=== PATIENT | female | born 1995 | race Caucasian/White ===

== ENCOUNTER 2018-08-31 08:17 | Inpatient (IN) ==
[2018-08-31] MEDS ORDERED: Naloxone Inj 0.4 MG/ML Vial IV.PUSH PRN ×2 (09:08→16:41)
[2018-08-31] MEDS ORDERED: Oxytocin 30 Units/500ml Premix 30 UNITS/500 ML BAG IV.SIG ONE (09:08)
[2018-08-31] MEDS ORDERED: fentaNYL Citrate Inj 100 MCG/2 ML Ampul IV.PUSH PRN ×2 (09:08)
[2018-08-31] MEDS ORDERED: Penicillin G Potassium Inj 5,000,000 UNIT in Sodium Chloride 0.9% Inj 100 ML IV.SIG ONE (09:08)
[2018-08-31] MEDS ORDERED: Sodium Chlor 0.9% Inj 500 ML IV.SIG PRN (09:08)
[2018-08-31] MEDS ORDERED: Sod Chloride 0.9% Inj 1,000 ML IV.CONT PRN (09:08)
--- NOTE | 2018-08-31 09:08 | P.HPOB ---
OB - Admission History and Physical Patient Name: Abbi Burden Date of : 89 Patient Status: Inpatient Attending Provider: Yumiko Vasques Date: 08/31/18 09:07 Initialization Date: 08/31/18 08:57 History of Present Illness [place] [facility] [place] Physician: No Primary Care Physician Chief Complaint: ruptured membranes History of Present Illness: This 23 y/o female , EGA 39 wks presents to the OB ED with c/o SROM. She states her water broke at 8 AM. She is not really feeling ctxs. +FM, No VB. complicated by VB at 27 wks for which no cause was found. She was also scheduled for ind next week due to elevated liver enzymes. care has been with Dr. Mullins. Weeks Gestation:: 39 Para: 0 : 2 - Inpatient Certification I certify that the inpatient services were ordered in accordance with Medicare regulations governing the order. This includes certification that hospital inpatient services are reasonable and necessary and in the case of services not specified as inpatient-only under 42 CFR 419.22(n), that they are appropriately provided as inpatient services in accordance to with the 2-midnight benchmark under 43 CFR 412.3(e) Estimated Total Length of Stay (Days): 3 Plans for Post Hospital Care: Home Review of Systems All other systems reviewed negative except as stated in [facility] - History History Provided By: Patient - Medical History Medical History: Medical History (Last Updated 08/31/18 @ 09:00 by Swetha Cooper DO) Elevated liver enzymes (Acute) - Surgical History Surgical History: Surgical History (Last Reviewed 08/31/18 @ 09:00 by Swetha Cooper DO) History of dilation and curettage History of orthopedic surgery - Social History I have reviewed the patient's Social History: Yes - Tobacco History Smoking Status: Never smoker - Alcohol History How Often Do You Have a Drink Containing Alcohol: Never - Substance Use History Substance History: No History of Abuse - Travel History History of Recent Travel: No Medications and Allergies Allergies Allergy/AdvReac Type Severity Reaction Status Date / Time No Known Allergies Allergy Verified 06/22/18 15:40 Home Medications Medication Instructions Recorded Confirmed Type folic acid 0.8 mg PO DAILY 06/22/18 06/22/18 History vit,[id number] 1 tab PO DAILY 06/22/18 06/22/18 History [PNV 29-1] Exam Vital signs: Vital Signs 08/31/18 08:36 08/31/18 08:45 Temperature 99.4 F Pulse Rate 76 Respiratory Rate 18 Blood Pressure 119/75 Narrative: GENERAL: Well-nourished, well-developed patient. SKIN: Warm and dry. HEAD: Normocephalic and atraumatic. EYES: No scleral icterus. No injection or drainage. ENT: No nasal drainage noted. Mucous membranes pink. Airway patent. NECK: Supple, trachea midline. No JVD. CARDIOVASCULAR: Regular rate and rhythm without murmurs, gallops, or rubs. RESPIRATORY: Breath sounds equal bilaterally. No accessory muscle use. ABDOMEN/GI: Abdomen soft, non-tender, bowel sounds present, no rebound, no guarding Gravid to [39] weeks size GENITOURINARY: External Genitalia: intact and normal in appearance BUS glands: [normal] Cervix: [Mid] Dilatation: [6] Effacement: [80] Station: [-2] Presentation: [vtx] Membranes: [ruptured] Uterine Contractions: [irreg] FHT's: Category: [1] Baseline: [140] Reactive: [Yes] Variability: [Mod] Decels: [None] +Accels EXTREMITIES: No cyanosis or edema. BACK: Nontender without obvious deformity. No CVA tenderness. NEUROLOGICAL: Awake and alert. Motor and sensory grossly within normal limits. Five out of 5 muscle strength in all muscle groups. Normal speech. Results - Labs Group B Strep: Positive Assessment and Plan - Diagnosis (1) Leakage of amniotic fluid Code(s): O42.90 - Premature rupture of membranes, unspecified as to length of time between rupture and onset of labor, unspecified weeks of gestation Status : Acute (2) 39 weeks gestation of Code(s): Z3A.39 - 39 weeks gestation of Status: Acute (3) Elevated liver enzymes Code(s): R74.8 - Abnormal levels of other serum enzymes Status: Acute - Plan Admit to L&D GBS prophylaxis Pit if needed Discharge Plan - Physicians Team ED Provider: Swetha Cooper Primary Care Provider: Primary Care Physici,No - Rxs /Orders / Referrals /Forms Prescriptions: No Action folic acid 0.8 mg Capsule 0.8 mg PO DAILY vit,[id number] [PNV 29-1] 29 mg iron- 1 mg Tablet 1 tab PO DAILY - Discharge Instructions Print Language: Kyrgyz
[2018-08-31] MEDS ORDERED: Citric Acid/Sodium Citrate Liq 30 ML UDC PO SCH (09:15)
[2018-08-31 09:23] LABS: Baso % (Auto) 0.3 % (0.0-2.0); Eos # (Auto) 0.1 th/mm3 (0.0-0.4); Eos % (Auto) 0.7 % (0.0-4.0); Hematocrit 38.1 % (35.0-46.0); Hemoglobin 13.1 gm/dL (11.6-15.3); Lymph # (Auto) 2.1 th/mm3 (1.0-4.8); Lymph % (Auto) 21.2 % (9.0-44.0); Mean Corpuscular HGB Conc 34.4 % (32.0-36.0); Mean Corpuscular Hemoglobin 30.7 pg (27.0-34.0); Mean Corpuscular Volume 89.5 fL (80.0-100.0); Mean Platelet Volume 8.6 fL (7.0-11.0); Mono # (Auto) 0.8 th/mm3 (0.0-0.9); Mono % (Auto) 7.5 % (0.0-8.0); Neut % (Auto) 70.3 % (16.0-70.0); Platelet Count 165 th/mm3 (150-450); Red Blood Count 4.26 mil/mm3 (4.00-5.30); Red Cell Distribution Width 12.7 % (11.6-17.2)
[2018-08-31] MEDS ORDERED: fentaNYL 2MCG-Bupiv 0.125% Epi 150 ML EPIDURAL ONE (09:29)
[2018-08-31 09:40] LABS: Bacteria,Urine Rare /hpf; Bilirubin,Urine Negative (Negative); Clarity,Urine Hazy (Clear); Color,Urine Yellow (Yellw/Straw); Glucose,Urine (UA) Negative (Negative); Leukocyte Esterase,Urine Trace (Negative); Mucus,Urine Few /lpf (Occasional); Nitrite,Urine Negative (Negative); Specific Gravity,Urine 1.016 (1.002-1.035); Squamous Epithelial Cell,Urine 3 /hpf (0-5)
[2018-08-31 09:43] LABS: Albumin 2.4 g/dL (3.4-5.0); Anion Gap 8 meq/L (5-15); Aspartate Aminotransferase 25 U/L (15-37); Blood Urea Nitrogen 7 mg/dL (7-18); Calcium 8.2 mg/dL (8.5-10.1); Carbon Dioxide 22.7 meq/L (21.0-32.0); Chloride 108 meq/L (98-107); Glomerular Filtration Rate Greater Than 89 mL/min (>89); Glucose,Random 71 mg/dL (74-106); Potassium 3.7 meq/L (3.5-5.1); Sodium 139 meq/L (136-145)
[2018-08-31 09:44] LABS: Alanine Aminotransferase 35 U/L (10-53)
[2018-08-31 09:46] LABS: Alkaline Phosphatase 190 U/L (45-117); Total Protein 6.3 g/dL (6.4-8.2)
[2018-08-31] MEDS ORDERED: Lidocaaine 1.5%/Epinephrine 1:200,000 PF Inj 5 ML Amp ONE (10:05)
[2018-08-31] MEDS ORDERED: Lidocaine PF 1% Inj 5 ML Vial ONE (10:05)
[2018-08-31] MEDS ORDERED: fentaNYL Citrate Inj 100 MCG/2 ML Ampul EPIDURAL ONE (11:04)
[2018-08-31] MEDS ORDERED: fentaNYL 2MCG-Bupiv 0.125% Epi 150 ML EPIDURAL PRN (11:04)
[2018-08-31] MEDS ORDERED: Oxytocin 30 Units/500ml Premix 30 UNITS/500 ML BAG IV.SIG PRN (12:00)
[2018-08-31] MEDS: Penicillin G Potassium Inj 2,500,000 UNIT in Sodium Chlor 0.9% Inj 100 ML IV.SIG SCH ×2 (13:17→18:29)
--- NOTE | 2018-08-31 15:49 | P.OBLABOR ---
Subjective Interval history: comfortable with epidural Objective Vital Signs: Vital Signs - 8 hr 08/31/18 08:36 08/31/18 08:45 08/31/18 09:26 Temperature 99.4 F Pulse Rate 76 58 L Respiratory Rate 18 18 Blood Pressure 119/75 122/64 08/31/18 09:41 08/31/18 09:50 08/31/18 09:55 Temperature Pulse Rate 74 68 68 Respiratory Rate 18 Blood Pressure 111/70 105/48 L 119/71 08/31/18 10:27 08/31/18 10:31 08/31/18 10:35 Temperature Pulse Rate 69 73 Respiratory Rate 16 Blood Pressure 122/64 122/64 120/79 08/31/18 10:40 08/31/18 10:50 08/31/18 10:55 Temperature 97.9 F Pulse Rate 75 73 77 Respiratory Rate 16 Blood Pressure 109/55 L 113/70 116/65 08/31/18 11:05 08/31/18 11:10 08/31/18 11:25 Temperature Pulse Rate 72 74 84 Respiratory Rate 18 Blood Pressure 121/70 125/72 114/69 08/31/18 11:45 08/31/18 11:55 08/31/18 12:20 Temperature Pulse Rate 74 76 71 Respiratory Rate 18 Blood Pressure 114/74 109/71 08/31/18 12:25 08/31/18 12:35 08/31/18 12:39 Temperature 98.0 F Pulse Rate 77 74 Respiratory Rate 16 Blood Pressure 118/68 08/31/18 12:40 08/31/18 12:45 08/31/18 12:55 Temperature Pulse Rate 72 72 68 Respiratory Rate Blood Pressure 116/64 08/31/18 13:30 08/31/18 13:55 08/31/18 14:00 Temperature Pulse Rate 72 90 86 Respiratory Rate 16 Blood Pressure 114/70 119/73 119/78 08/31/18 14:10 08/31/18 14:15 08/31/18 14:25 Temperature 99.0 F Pulse Rate 94 H 91 H 99 H Respiratory Rate 18 Blood Pressure 114/67 08/31/18 15:10 08/31/18 15:12 08/31/18 15:15 Temperature 99.8 F H Pulse Rate 93 H 96 H Respiratory Rate Blood Pressure 121/74 108/71 08/31/18 15:25 Temperature Pulse Rate 100 H Respiratory Rate Blood Pressure Objective: Pelvic Exam: complete/100%/0 EFW 7 pounds pelvis clinically adequate no caput Assessment and Plan - Plan Anticipate vaginal delivery soon
[2018-08-31] MEDS ORDERED: Measles/Mumps/Rubella Vaccine Inj 0.5 ML Vial SQ ONE (16:00)
[2018-08-31] MEDS ORDERED: Diphtheria/Tetanus/Pertussis Vaccine Inj 0.5 ML Syringe IM ONE (16:00)
--- NOTE | 2018-08-31 16:36 | P.OBDELI ---
Weeks Gestation: 39 Anesthesia: Epidural Episiotomy: none Vaginal Delivery: Normal Presentation: Occiput anterior Nuchal Cord: None Delayed Cord Clamping (45 sec): Yes Placenta: Spontaneous delivery, Intact, 3 vessel cord Laceration: None Estimated blood loss (mL): 200 : Female Female A Infant Delivery Date: 08/31/18 Infant Delivery Time: 16:34 Weight: 3500 kg score (1 min): 8 score (5 min): 9 (terminal meconium)
[2018-08-31] MEDS ORDERED: Bisacodyl 10 MG Supp RECTAL PRN (16:41)
[2018-08-31] MEDS ORDERED: Zolpidem Tartrate 5 MG Tablet PO PRN (16:41)
[2018-08-31] MEDS ORDERED: Oxytocin 30 Units/500ml Premix 30 UNITS/500 ML BAG IV.CONT PRN (16:41)
[2018-08-31] MEDS ORDERED: Witch Hazel 50%/Glyderin 12.5% 40 Pad Jar RECTAL PRN (16:41)
[2018-08-31] MEDS ORDERED: Acetaminophen 325 MG Tablet PO PRN (16:41)
[2018-08-31] MEDS ORDERED: Benzocaine 20% Top Spray 60 ML Can TOPICAL PRN (16:41)
[2018-08-31] MEDS ORDERED: Methylergonovine Inj 0.2 MG/ML Ampul ONE (16:50)
[2018-08-31] MEDS ORDERED: Methylergonovine Inj 0.2 MG/ML Ampul IM ONE (17:30)
[2018-08-31] MEDS ORDERED: ceFAZolin Inj 1 GM in Sodium Chlor 0.9% Inj 100 ML IV.SIG ONE (18:15)
[2018-08-31 21:33] VITALS: RESP 18
[2018-09-01] MEDS: Senna/Docusate Sodium 8.6/50 MG Tablet PO SCH ×3 (07:59→20:58)
--- NOTE | 2018-09-01 12:34 | P.PNOB ---
Subjective Post day: 1 Interval history: doing well minimal bleeding nursing no complaints Objective Vital Signs/I&O: Vital Signs 08/31/18 12:35 08/31/18 12:39 08/31/18 12:40 Temperature 98.0 F Pulse Rate 74 72 Respiratory Rate 16 Blood Pressure 118/68 08/31/18 12:45 08/31/18 12:55 08/31/18 13:30 Temperature Pulse Rate 72 68 72 Respiratory Rate Blood Pressure 116/64 114/70 08/31/18 13:55 08/31/18 14:00 08/31/18 14:10 Temperature Pulse Rate 90 86 94 H Respiratory Rate 16 Blood Pressure 119/73 119/78 08/31/18 14:15 08/31/18 14:25 08/31/18 15:10 Temperature 99.0 F Pulse Rate 91 H 99 H 93 H Respiratory Rate 18 Blood Pressure 114/67 121/74 08/31/18 15:12 08/31/18 15:15 08/31/18 15:25 Temperature 99.8 F H Pulse Rate 96 H 100 H Respiratory Rate Blood Pressure 108/71 08/31/18 15:40 08/31/18 15:55 08/31/18 16:10 Temperature 100.5 F H 100.3 F H Pulse Rate 104 H 95 H 104 H Respiratory Rate Blood Pressure 122/74 116/70 08/31/18 16:15 08/31/18 16:33 08/31/18 16:35 Temperature Pulse Rate 103 H 104 H Respiratory Rate 18 Blood Pressure 123/62 08/31/18 16:46 08/31/18 16:50 08/31/18 17:01 Temperature Pulse Rate 102 H 95 H Respiratory Rate 16 Blood Pressure 118/62 113/54 L 08/31/18 17:10 08/31/18 17:15 08/31/18 17:18 Temperature 99.0 F Pulse Rate 95 H 93 H Respiratory Rate 14 16 Blood Pressure 115/62 08/31/18 17:20 08/31/18 17:35 08/31/18 17:45 Temperature Pulse Rate 99 H 94 H 100 H Respiratory Rate Blood Pressure 118/67 121/63 08/31/18 17:50 08/31/18 20:00 09/01/18 04:00 Temperature 100.1 F H 98.4 F 97.6 F Pulse Rate 83 105 H Respiratory Rate 18 Blood Pressure 119/67 09/01/18 08:00 Temperature 97.8 F Pulse Rate 67 Respiratory Rate 18 Blood Pressure 108/58 L Intake & Output 08/31/18 09/01/18 09/01/18 18:59 06:59 18:59 Weight 92.533 kg Result Diagrams: 08/31/18 09:00 08/31/18 09:00 Objective Remarks: GENERAL: Well-nourished, well-developed patient. CARDIOVASCULAR: Regular rate and rhythm without murmurs, gallops, or rubs. RESPIRATORY: Breath sounds equal bilaterally. No accessory muscle use. ABDOMEN/GI: Abdomen soft, non-tender. Fundus: Firm, non-tender at umbilicus. GENITOURINARY: Light to moderate bleeding. EXTREMITIES: No cyanosis or edema, non-tender, without signs of DVT. Medications and IVs: Active Medications Acetaminophen (Tylenol) 650 mg PO Q4H PRN PRN Reason: PAIN SCALE 1 TO 2 Al Hydroxide/Mg Hydroxide (Milk Of Magnesia Liq) 30 ml PO Q12H PRN PRN Reason: Mild Constipation Benzocaine (Americaine 20% Top [place]) 1 spray TOPICAL Q4H PRN PRN Reason: For Perineum Discomfort Bisacodyl (Dulcolax Supp) 10 mg RECTAL DAILY PRN PRN Reason: SEVERE CONSITIPATION Citric Acid/Sodium Citrate (Sodium Citrate/Citric Acid Liq) 30 ml PO [employer] [facility] Stop: 09/04/18 09:14 Fentanyl Citrate (Fentanyl Inj) 50 mcg IV.PUSH Q1H PRN PRN Reason: Pain Scale 3 - 5 Fentanyl Citrate (Fentanyl Inj) 100 mcg IV.PUSH Q1H PRN PRN Reason: PAIN SCALE 6 TO 10 Lactated Ringer's (Lr 1000 Ml Inj) 1,000 mls @ 3,000 mls/hr IV.SIG UNSCH PRN PRN Reason: compromise or epidural Sodium Chloride (Ns Inj) 500 mls @ 1,000 mls/hr IV.SIG UNSCH PRN PRN Reason: SEE LABEL COMMENTS Sodium Chloride (Ns Inj) 1,000 mls @ 100 mls/hr IV.CONT .Q10H PRN PRN Reason: SEE LABEL COMMENTS Lactated Ringer's (Lr 1000 Ml Inj) 1,000 mls @ 125 mls/hr IV.CONT .Q8H [facility] Last Admin: 08/31/18 18:29 Dose: Not Given Penicillin G Potassium 2,500, (000 unit/ Sodium Chloride) 100 mls @ 200 mls/hr IV.SIG Q4H [facility] Last Admin: 08/31/18 18:29 Dose: Not Given Fentanyl/Bupivacaine/Sodium Chlor (Fentanyl 2 Mcg-Bupiv 0.125% Epi) 150 mls @ 12 mls/hr EPIDURAL PRN PRN PRN Reason: for Labor Pain Last Admin: 08/31/18 11:14 Dose: 12 mls/hr Oxytocin (Pitocin 30 Units/Ns 500 Ml Premix) 30 units in 500 mls @ 1 mls/hr IV.SIG TITRATE PRN; Protocol PRN Reason: For induction of labor Last Admin: 08/31/18 11:31 Dose: 1 milliunit/min, 1 mls/hr Oxytocin (Pitocin 30 Units/Ns 500 Ml Premix) 30 units in 500 mls @ 100 mls/hr IV.CONT UNSCH PRN PRN Reason: Heavy bleeding Ibuprofen (Motrin) 800 mg PO Q8H PRN PRN Reason: For Cramping Last Admin: 09/01/18 11:25 Dose: 800 mg Lactulose (Lactulose Liq) 30 ml PO DAILY PRN PRN Reason: SEVERE CONSITIPATION Lidocaine HCl (Xylocaine 1% Inj) 0.1 ml I-DERMAL PRN PRN PRN Reason: For IV start Stop: 09/03/18 09:07 Lidocaine HCl (Xylocaine 1% Inj) 10 ml INFILTRATN PRN PRN PRN Reason: For episiotomy repair Stop: 09/02/18 09:07 Mineral Oil (Muri-Lube Oil) 10 ml TOPICAL PRN PRN PRN Reason: PRN perineal massage Naloxone HCl (Narcan Inj) 0.1 mg IV.PUSH Q2M PRN PRN Reason: for opiate reversal Naloxone HCl (Narcan Inj) 0.1 mg IV.PUSH Q2M PRN PRN Reason: for opiate reversal Ondansetron HCl (Zofran Odt) 4 mg PO Q6H PRN PRN Reason: NAUSEA OR VOMITING Last Admin: 08/31/18 18:28 Dose: 4 mg Senna/Docusate Sodium (Kaye-Colace) 1 tab PO BID [facility] Last Admin: 09/01/18 11:27 Dose: 1 tab Sennosides (Senokot) 17.2 mg PO Q12H PRN PRN Reason: Moderate Constipation Sodium Chloride (Ns Flush) 2 ml IV.FLUSH BID [facility] Last Admin: 09/01/18 11:25 Dose: Not Given Sodium Chloride (Ns Flush) 2 ml IV.FLUSH PRN PRN PRN Reason: FLUSH AFTER USING IV ACCESS Witch Jeanette/Glycerin (Tucks Pads) 1 applicatio RECTAL QID PRN PRN Reason: HEMORRHOIDS Zolpidem Tartrate (Ambien) 5 mg PO HS PRN PRN Reason: SLEEP Assessment and Plan - Plan Anticipate vaginal delivery soon 09/01/18 19 hours post delivery doing well anticipate discharge monday
[2018-09-01 20:11] VITALS: PULSE 70
[2018-09-02 08:04] VITALS: BP 115/65; TEMP 98
--- NOTE | 2018-09-02 12:15 | P.PNOB ---
Subjective Post day: 2 Interval history: Doing well nursing no signs or symptoms of depression reports good support system Objective Vital Signs/I&O: Vital Signs 09/01/18 20:00 09/02/18 08:03 Temperature 97.9 F 98.0 F Pulse Rate 70 70 Respiratory Rate 18 18 Blood Pressure 115/61 115/65 Result Diagrams: 08/31/18 09:00 08/31/18 09:00 Objective Remarks: GENERAL: Well-nourished, well-developed patient. CARDIOVASCULAR: Regular rate and rhythm without murmurs, gallops, or rubs. RESPIRATORY: Breath sounds equal bilaterally. No accessory muscle use. ABDOMEN/GI: Abdomen soft, non-tender. Fundus: Firm, non-tender at umbilicus. GENITOURINARY: Light to moderate bleeding. EXTREMITIES: No cyanosis or edema, non-tender, without signs of DVT. Medications and IVs: Active Medications Acetaminophen (Tylenol) 650 mg PO Q4H PRN PRN Reason: PAIN SCALE 1 TO 2 Al Hydroxide/Mg Hydroxide (Milk Of Magnesia Liq) 30 ml PO Q12H PRN PRN Reason: Mild Constipation Benzocaine (Americaine 20% Top [place]) 1 spray TOPICAL Q4H PRN PRN Reason: For Perineum Discomfort Bisacodyl (Dulcolax Supp) 10 mg RECTAL DAILY PRN PRN Reason: SEVERE CONSITIPATION Citric Acid/Sodium Citrate (Sodium Citrate/Citric Acid Liq) 30 ml PO AQUATIC ECOLOGIST [facility] Stop: 09/04/18 09:14 Fentanyl Citrate (Fentanyl Inj) 50 mcg IV.PUSH Q1H PRN PRN Reason: Pain Scale 3 - 5 Fentanyl Citrate (Fentanyl Inj) 100 mcg IV.PUSH Q1H PRN PRN Reason: PAIN SCALE 6 TO 10 Lactated Ringer's (Lr 1000 Ml Inj) 1,000 mls @ 3,000 mls/hr IV.SIG UNSCH PRN PRN Reason: compromise or epidural Sodium Chloride (Ns Inj) 500 mls @ 1,000 mls/hr IV.SIG UNSCH PRN PRN Reason: SEE LABEL COMMENTS Sodium Chloride (Ns Inj) 1,000 mls @ 100 mls/hr IV.CONT .Q10H PRN PRN Reason: SEE LABEL COMMENTS Lactated Ringer's (Lr 1000 Ml Inj) 1,000 mls @ 125 mls/hr IV.CONT .Q8H [facility] Last Admin: 08/31/18 18:29 Dose: Not Given Fentanyl/Bupivacaine/Sodium Chlor (Fentanyl 2 Mcg-Bupiv 0.125% Epi) 150 mls @ 12 mls/hr EPIDURAL PRN PRN PRN Reason: for Labor Pain Last Admin: 08/31/18 11:14 Dose: 12 mls/hr Oxytocin (Pitocin 30 Units/Ns 500 Ml Premix) 30 units in 500 mls @ 1 mls/hr IV.SIG TITRATE PRN; Protocol PRN Reason: For induction of labor Last Admin: 08/31/18 11:31 Dose: 1 milliunit/min, 1 mls/hr Oxytocin (Pitocin 30 Units/Ns 500 Ml Premix) 30 units in 500 mls @ 100 mls/hr IV.CONT UNSCH PRN PRN Reason: Heavy bleeding Ibuprofen (Motrin) 800 mg PO Q8H PRN PRN Reason: For Cramping Last Admin: 09/02/18 05:54 Dose: 800 mg Lactulose (Lactulose Liq) 30 ml PO DAILY PRN PRN Reason: SEVERE CONSITIPATION Lidocaine HCl (Xylocaine 1% Inj) 0.1 ml I-DERMAL PRN PRN PRN Reason: For IV start Stop: 09/03/18 09:07 Mineral Oil (Muri-Lube Oil) 10 ml TOPICAL PRN PRN PRN Reason: PRN perineal massage Naloxone HCl (Narcan Inj) 0.1 mg IV.PUSH Q2M PRN PRN Reason: for opiate reversal Naloxone HCl (Narcan Inj) 0.1 mg IV.PUSH Q2M PRN PRN Reason: for opiate reversal Ondansetron HCl (Zofran Odt) 4 mg PO Q6H PRN PRN Reason: NAUSEA OR VOMITING Last Admin: 08/31/18 18:28 Dose: 4 mg Senna/Docusate Sodium (Kaye-Colace) 1 tab PO BID [facility] Last Admin: 09/01/18 20:58 Dose: 1 tab Sennosides (Senokot) 17.2 mg PO Q12H PRN PRN Reason: Moderate Constipation Sodium Chloride (Ns Flush) 2 ml IV.FLUSH BID [facility] Last Admin: 09/02/18 09:46 Dose: Not Given Sodium Chloride (Ns Flush) 2 ml IV.FLUSH PRN PRN PRN Reason: FLUSH AFTER USING IV ACCESS Witch Jeanette/Glycerin (Tucks Pads) 1 applicatio RECTAL QID PRN PRN Reason: HEMORRHOIDS Zolpidem Tartrate (Ambien) 5 mg PO HS PRN PRN Reason: SLEEP Assessment and Plan - Plan Anticipate vaginal delivery soon 09/01/18 19 hours post delivery doing well anticipate discharge monday09/02/18 Ready for discharge counseled return to office in two weeks
== END 2018-09-02 13:47 | disposition home or self-care (01) | DRG 807 ==
LOC: HOBED 08:17 → H2E 08:45 → H1EA 18:18
PROVIDERS: ADMIT Obstetrics & Gynecology; ATTEND Obstetrics & Gynecology
CPT/HCPCS: 59025; 80053; 81001; 83518; 84112; 85025; 86900; 86901; 99285; J0690; J2210; J2540; J2590; J3010; J7120